=== PATIENT | female | born 1960 | race Caucasian/White ===

== ENCOUNTER 2017-05-29 21:07 | Emergency (ER) | payer OTHER ==
[~2017-05-29] VITALS: Ht 152.4 cm; Wt 77.2 kg
[~2017-05-29 21:07] MED LIST: ACET500C5 PO; BENZ100C70 PO; NPH10OT BOTH EARS; UDROBDM PO
[2017-05-29 21:16] VITALS: Ht 152.4 cm; Wt 77.2 kg
[2017-05-29] MEDS ORDERED: traMADol 50 MG TAB PO ONE (22:00)
--- NOTE | 2017-05-29 22:17 | ERD ---
ER Documentation Chief Complaint Date/Time DATE: 05/29/17 TIME: 22:15 Chief Complaint c/o rt lower back pain radiating to right leg x5 days. denies trauma/fall HPI 56-year-old female otherwise healthy presents with right-sided lower back pain for the past 5 days. She describes as sharp pain, moderate, worse with sitting and better with standing, and radiates down her leg. She denies trauma but reports that she has had this pain in the past previously and it has gone away on its own. She reports that she also has had a rash due to Advil, she tried taking it once 2 days ago without any problems, and has been taking Tylenol since. She denies saddle anesthesia, loss of bowel bladder function or fevers or chills. ROS All systems reviewed and are negative except as per history of present illness. Medications Home Meds Active Scripts Acetaminophen* (Tylophen*) 500 Mg Capsule, 1 CAP PO Q6H Y for PAIN AND OR ELEVATED TEMP, #20 CAP Prov:SUSHANTTARIANBRUNA PA-C 10/18/16 Neomycin/Polymyxin/Hydrocort* (Cortisporin* Otic) 10 Ml Susp, 4 DROP BOTH EARS QID, #1 EA Prov:BRUNA SNIDERC 10/18/16 Benzonatate* (Tessalon Perle*) 100 Mg Capsule, 100 MG PO Q8H Y for COUGH for 14 Days, CAP Prov:BRUNA SNIDER-C 10/18/16 Guaifenesin-Dextromethorphan* (Robitussin* DM) 100MG/10MG/5ML Syrup, 5 ML PO Q4H for 14 Days, ML Prov:BRUNA SNIDER-C 10/18/16 Allergies Allergies: Coded Allergies: chlorpheniramine (Verified Allergy, Mild, 05/29/17) ibuprofen (Verified Allergy, Mild, 10/18/16) pseudoephedrine (Verified Allergy, Mild, 10/18/16) Uncoded Allergies: [id number] (ADVIL) (Allergy, Mild, 03/03/11) PMhx/Soc History of Surgery: No Anesthesia Reaction: No Hx Neurological Disorder: No Hx Respiratory Disorders: No Hx Cardiac Disorders: No Hx Psychiatric Problems: No Hx Miscellaneous Medical Probl: No Hx Alcohol Use: No Hx Substance Use: No Hx Tobacco Use: No Smoking Status: Never smoker Physical Exam Vitals Vital Signs Date Time Temp Pulse Resp B/P Pulse Ox O2 Delivery O2 Flow Rate FiO2 05/29/17 21:16 96.4 78 18 159/79 98 Physical Exam General: Well-developed, well-nourished. The patient appears in no acute distress. HEENT: Head is normocephalic, atraumatic. No scleral icterus. Neck: Supple. Nontender. Lungs: Clear to auscultation. Normal air movement. Heart: Regular rate and rhythm. S1 and S2 are normal. No murmurs, gallops, or rubs. Abdomen: Soft, nontender, nondistended. Bowel sounds are normoactive. Back: Tenderness over the right sacroiliac region. She is able to flex and extend the hip fully. Gait is intact, sensation distally intact. Extremities: No clubbing or cyanosis. Normal pulses. Moving extremities x 4. No weakness. Neurologic: Alert and oriented 3. No focal deficits. Skin: Normal turgor. No rash or lesions. Results 24 hrs Current Medications Medications (Trade) Dose Ordered Sig/Kenny Route PRN Reason Start Time Stop Time Status Last Admin Dose Admin Tramadol HCl (Ultram) 50 mg ONCE ONCE PO 05/29/17 22:00 05/29/17 22:01 DC Procedures/MDM ED course: She was given tramadol for pain. MDM: 48-year-old female presents with low back pain, radiating down her right lower extremity, consistent with sciatica. Patient's symptoms are most consistent with this, other differentials considered include cauda equina, epidural abscess, epidural hematoma, dissection, UTI, pyelonephritis, PID, cervicitis. Patient's back pain is reproduced with palpation, this appears to be musculoskeletal, with a recent exacerbation causing sciatica symptoms. She was given tramadol emergency department much better at this time will be discharged home. Departure Diagnosis: Primary Impression: Back pain Condition: Good WILLEM LAMB PA-C May 29, 2017 22:17
[2017-05-29] MEDS ORDERED: TRAM50TA2 PO (22:18)
[2017-05-29 22:58] VITALS: BP 171/79; PULSE 72; RESP 18; TEMP 98.6
== END 2017-05-29 22:57 | disposition home or self-care (01) ==
LOC: FTE 21:07
DX: M54.5 Low back pain (principal)
CPT/HCPCS: Z7502; Z7610; 99283

== ENCOUNTER 2017-10-01 08:21 | Emergency (ER) | payer OTHER ==
[~2017-10-01] VITALS: Wt 81.8 kg
[~2017-10-01 08:21] MED LIST changes: +TRAM50TA2 PO
[2017-10-01] MEDS ORDERED: KETOROLAC 30 MG INJ IM STA (09:20)
[2017-10-01] MEDS ORDERED: ACETAMINOPHEN 325 MG TAB PO ONE (09:30)
--- NOTE | 2017-10-01 09:49 | RADRPT ---
PROCEDURE: XR Lumbar Spine. CLINICAL INDICATION: Back pain. TECHNIQUE: Three views. AP, lateral and cone-down lateral view of the lumbar spine were obtained. COMPARISON: No prior studies are available for comparison. FINDINGS: There is grade 1 anterolisthesis at L5-S1 measuring 0.3 cm. There is retrolisthesis at L3-4 measurin g 0.5 cm. Alignment is otherwise normal. There is no fracture. There is no lytic or blastic lesion. There are small osteophytes throughout. Disc space narrowing is present at L3-4 and L5-S1. There is hypertrophy of the facet joints at L4-5 and L5-S1. The paravertebral soft tissues are unremarkable. IMPRESSION: 1. Grade 1 anterolisthesis at L5-S1 measuring 0.3 cm. 2. Retrolisthesis at L3-4 measuring 0.5 cm. 3. Degenerative changes at L3-4, L4-5, and L5-S1. 5. Otherwise unremarkable study. RPTAT: QQ .Marques Marcos MD, MD Date Time Electronically viewed and signed by .Marques Marcos MD, on 10/01/2017 09:49 .R/
[2017-10-01] MEDS ORDERED: IBUP-1542 PO (10:17)
[2017-10-01] MEDS ORDERED: CYCL-319 PO (10:17)
--- NOTE | 2017-10-01 10:25 | ERD ---
ER Documentation Chief Complaint Chief Complaint r. sided back pain HPI This 57-year-old female presents with low back pain rating of the right thigh and buttock. She denies any history of trauma. She denies any bowel or bladder incontinence, weakness, urinary complaints, fevers. Patient has had this for several months. She states that she has never had an x-ray. ROS All systems reviewed and are negative except as per history of present illness. Medications Home Meds Active Scripts Cyclobenzaprine Hcl* (Cyclobenzaprine Hcl*) 10 Mg Tablet, 10 MG PO TID, #15 TAB Prov:ASHLY BOBO MD 10/01/17 Ibuprofen* (Motrin*) 600 Mg Tab, 600 MG PO Q6, #20 TAB Prov:ASHLY BOBO MD 10/01/17 Tramadol HCl (Tramadol HCl) 50 Mg Tablet, 50 MG PO Q4 Y for PAIN, #20 TAB Prov:WILLEM LAMB PA-C 05/29/17 Acetaminophen* (Tylophen*) 500 Mg Capsule, 1 CAP PO Q6H Y for PAIN AND OR ELEVATED TEMP, #20 CAP Prov:BRUNA SNIDER PA-C 10/18/16 Neomycin/Polymyxin/Hydrocort* (Cortisporin* Otic) 10 Ml Susp, 4 DROP BOTH EARS QID, #1 EA Prov:BRUNA SNIDER PA-C 10/18/16 Benzonatate* (Tessalon Perle*) 100 Mg Capsule, 100 MG PO Q8H Y for COUGH for 14 Days, CAP Prov:BRUNA SNIDER PA-C 10/18/16 Guaifenesin-Dextromethorphan* (Robitussin* DM) 100MG/10MG/5ML Syrup, 5 ML PO Q4H for 14 Days, ML Prov:BRUNA SNIDER PA-C 10/18/16 Allergies Allergies: Coded Allergies: chlorpheniramine (Verified Allergy, Mild, 05/29/17) pseudoephedrine (Verified Allergy, Mild, 10/18/16) PMhx/Soc Medical and Surgical Hx: pt denies Medical Hx, pt denies Surgical Hx History of Surgery: No Anesthesia Reaction: No Hx Neurological Disorder: No Hx Respiratory Disorders: No Hx Cardiac Disorders: No Hx Psychiatric Problems: No Hx Miscellaneous Medical Probl: No Hx Alcohol Use: No Hx Substance Use: No Hx Tobacco Use: No Smoking Status: Never smoker Physical Exam Vitals Vital Signs Date Time Temp Pulse Resp B/P Pulse Ox O2 Delivery O2 Flow Rate FiO2 10/01/17 08:27 97.9 79 20 142/67 97 Physical Exam Const: [] Alert, [id number]. Head: Atraumatic Eyes: Normal Conjunctiva ENT: Normal External Ears, Nose and Mouth. Neck: Full range of motion..~ No meningismus. Resp: Clear to auscultation bilaterally Cardio: Regular rate and rhythm, no murmurs Abd: Soft, non tender, non distended. Normal bowel sounds Skin: No petechiae or rashes Back: No midline or flank tenderness. Tenderness in the right L4-5 paraspinous muscles and the right buttock. Ambulatory without deficits or weakness. Ext: No cyanosis, or edema Neur: Awake and alert Psych: Normal Mood and Affect Results 24 hrs Current Medications Medications (Trade) Dose Ordered Sig/Kenny Route PRN Reason Start Time Stop Time Status Last Admin Dose Admin Acetaminophen (Tylenol Tab) 650 mg ONCE ONCE PO 10/01/17 09:30 10/01/17 09:30 DC Ketorolac Tromethamine (Toradol) 30 mg ONCE STAT IM 10/01/17 09:20 10/01/17 09:22 DC 10/01/17 09:26 Procedures/MDM X-ray LS-Spine 3V Interpreted by me: Bones: No fracture, or lytic lesions Joints: No dislocation Foreign body: None impression-degenerative changes of the lumbar spine without findings of fracture dislocation. Patient was given Toradol 30 mg IM. Patient presents with low back pain and signs of sciatica without evidence of epidural abscess, cauda equina syndrome, neurologic deficit, bacterial infection. She will treated with ibuprofen, Flexeril, instructions for back exercises and primary care follow-up and return precautions. The patient was stable with no new complaints during the ER course. Clinically, there is no current evidence to suggest meningitis, sepsis, acute abdomen, pneumonia, acute coronary syndrome, pulmonary embolism, or any other emergent condition appearing to require further evaluation or hospitalization. The patient should certainly return for any new or worsening symptoms per the aftercare instructions. They should otherwise follow-up with her primary care doctor for reevaluation this week. Departure Diagnosis: Primary Impression: Back pain Back pain location: low back pain Chronicity: acute Back pain laterality: right Sciatica presence: with sciatica Sciatica laterality: sciatica of right side Qualified Code: M54.41 - Acute right-sided low back pain with right -sided sciatica Condition: Stable Patient Instructions: Back Exercises, Lumbar, Back Pain W/ Sciatica [facility] Usted se crowder hecho un examen mdico de control que le indica que no est en vannessa condicin que requiera tratamiento urgente en el Departamento de Emergencia. Un estudio ms profundo y el tratamiento de hawkins condicin pueden esperar sin ningn riesgo hasta que usted sea atendida/o en el consultorio de hawkins mdico o vannessa cl bonifacio. Es responsabilidad suya arreglar vannessa ariadne para el seguimiento del esmer. MANEJO DE CONDICIONES NO URGENTES EN EL FUTURO 1) Si usted tiene un mdico de atencin primaria: Usted debera llamar a hawkins mdico de atencin primaria antes de venir al departamento de emergencia. Despus de las horas de consultorio, hawkins doctor o hawkins asociado/a est disponible por telfono. El mdico o enfermero de brunilda en el servicio telefnico puede asesorarle por matthew medio para atender el problema, o esmer contrario se puede programar vannessa ariadne. 2) Si usted no tiene un mdico de atencin primaria: Llame al mdico o clnica de referencia que aparece abajo gaby las horas de consultorio para hacer vannessa ariadne para que le vean. CLINICAS: [facility] [phone] [facility] [phone] [facility] [phone] [place] [phone] [facility] [phone] [facility] [phone] [address] Additional Instructions: x ray chris artritis. Cheque otro vez con hawkins doctor primario en el proximo reeder or regresa para mas o nueva simptomas. ASHLY BOBO MD Oct 01, 2017 10:25
[2017-10-01 10:36] VITALS: BP 138/60; PULSE 84; RESP 20; TEMP 98.3
== END 2017-10-01 10:35 | disposition home or self-care (01) ==
LOC: FTE 08:21
DX: M54.41 Lumbago with sciatica, right side (principal)
CPT/HCPCS: 72100; 96372; J1885; Z7502

== ENCOUNTER 2017-12-20 05:30 | Emergency (ER) | END 2017-12-20 08:43 | disposition home or self-care (01) ==

== ENCOUNTER → 2018-04-30 | Emergency (ER) | END | disposition home or self-care (01) ==

== ENCOUNTER 2018-05-02 14:53 | Emergency (ER) | END 2018-05-02 15:40 | disposition home or self-care (01) ==

== ENCOUNTER 2019-05-11 16:33 | Emergency (ER) | payer OTHER ==
[~2019-05-11] VITALS: Ht 157.5 cm; Wt 78.1 kg
[~2019-05-11 16:33] MED LIST changes: +ACET325T33 PO; +BACI28.34 TOP; +BENZ-6 PO; -BENZ100C70 PO; +CEPH-443 PO; +CYCL10TA7 PO; +FLUT9.9S NASAL; +GUAI120S25 PO; +GUAI5SYR2 PO; +IBUP-1542 PO; -UDROBDM PO
[2019-05-11 16:35] VITALS: Ht 157.5 cm; Wt 78.1 kg
[2019-05-11] MEDS ORDERED: HYDROCODONE/APAP (5/325) TAB PO ONE (17:30)
[2019-05-11] MEDS ORDERED: ACET325T33 PO (18:45)
--- NOTE | 2019-05-11 20:06 | ERD ---
ER Documentation Chief Complaint Chief Complaint lt knee pain x 2 days HPI 58-year-old femaleWith no significant past medical history presents to the emergency department complaining of left knee pain after injury 2 days ago. She states she was walking in the store when she accidentally twisted her left knee. She reports pain which is intermittent, 7/10 in severity, worse with walking. She took Tylenol with some relief. She denies any head injury or loss of consciousness or other symptoms or injuries at this time. ROS All systems reviewed and are negative except as per history of present illness. Medications Home Meds Active Scripts Acetaminophen* (Tylenol*) 325 Mg Tablet, 2 TAB PO Q6 PRN for PAIN AND OR ELEVATED TEMP, #20 TAB Prov:MARIE DICKINSON PA-C 05/11/19 Bacitracin* (Bacitracin Zinc Oint*) 28.35 Gm Oint, 1 APPLIC TOP BID, #1 TUB APPLI TO Prov:OMARI GAVIN PA-C 05/02/18 Cephalexin* (Keflex*) 500 Mg Capsule, 500 MG PO QID for 7 Days, CAP Prov:OMARI GAVIN PA-C 05/02/18 Ibuprofen* (Motrin*) 600 Mg Tab, 600 MG PO Q6, #30 TAB Prov:ANA CHAVEZ 04/30/18 Acetaminophen* (Tylenol*) 325 Mg Tablet, 2 TAB PO Q8 PRN for PAIN AND OR ELEVATED TEMP, #20 TAB Prov:ANA CHAVEZ 04/30/18 Tramadol HCl (Tramadol HCl) 50 Mg Tablet, 50 MG PO Q4 PRN for PAIN, #20 TAB Prov:ANA CHAVEZ 04/30/18 Pdxgvvqwhrm-A-Zeubljadlv Hb* (Guaifenesin* DM Syrup) 120 Ml Syrup, 10 ML PO Q4H PRN for COUGH, #4 OZ Prov:WILLEM LAMB PA-C 12/20/17 Acetaminophen* (Tylophen*) 500 Mg Capsule, 1 CAP PO Q6H PRN for PAIN AND OR ELEVATED TEMP, #20 CAP Prov:WILLEM LAMB PA-C 12/20/17 Fluticasone Propionate (Flonase Allergy Relief) 9.9 Ml [place].susp, 1 SPRAY NASAL BID, #1 BOTTLE TO EACH NOSTRIL Prov:WILLEM LAMB PA-C 12/20/17 Benzonatate* (Tessalon Perle*) 100 Mg Capsule, 100 MG PO Q8H PRN for COUGH, #30 CAP Prov:WILLEM LAMB PA-C 12/20/17 Cyclobenzaprine Hcl* (Cyclobenzaprine Hcl*) 10 Mg Tablet, 10 MG PO TID, #15 TAB Prov:ASHLY BOBO MD 10/01/17 Ibuprofen* (Motrin*) 600 Mg Tab, 600 MG PO Q6, #20 TAB Prov:ASHLY BOBO MD 10/01/17 Tramadol HCl (Tramadol HCl) 50 Mg Tablet, 50 MG PO Q4 PRN for PAIN, #20 TAB Prov:WILLEM LAMB PA-C 05/29/17 Acetaminophen* (Tylophen*) 500 Mg Capsule, 1 CAP PO Q6H PRN for PAIN AND OR ELEVATED TEMP, #20 CAP Prov:BRUNA SNIDER PA-C 10/18/16 Neomycin/Polymyxin/Hydrocort* (Cortisporin* Otic) 10 Ml Susp, 4 DROP BOTH EARS QID, #1 EA Prov:BRUNA SNIDER PA-C 10/18/16 Benzonatate* (Tessalon Perle*) 100 Mg Capsule, 100 MG PO Q8H PRN for COUGH for 14 Days, CAP Prov:BRUNA SNIDER PA-C 10/18/16 Guaifenesin-Dextromethorphan* (Robitussin* DM) 100MG/10MG/5ML Syrup, 5 ML PO Q4H for 14 Days, ML Prov:BRUNA SNIDER PA-C 10/18/16 Allergies Allergies: Coded Allergies: chlorpheniramine (Verified Allergy, Mild, 05/11/19) ibuprofen (Verified Allergy, Mild, HIVES, 05/11/19) pseudoephedrine (Verified Allergy, Mild, 05/11/19) PMhx/Soc Medical and Surgical Hx: pt denies Medical Hx History of Surgery: Yes (C SECTION) Anesthesia Reaction: No Hx Neurological Disorder: No Hx Respiratory Disorders: No Hx Cardiac Disorders: No Hx Psychiatric Problems: No Hx Miscellaneous Medical Probl: No Hx Alcohol Use: No Hx Substance Use: No Hx Tobacco Use: No Smoking Status: Never smoker FmHx Family History: No diabetes Physical Exam Vitals Vital Signs Date Temp Pulse Resp B/P (MAP) Pulse Ox O2 O2 Flow FiO2 Time Delivery Rate 05/11/19 97.5 89 18 168/79 96 16:35 (108) Physical Exam Const: No acute distress Head: Atraumatic Eyes: Normal Conjunctiva ENT: Normal External Ears, Nose and Mouth. Neck: Full range of motion. No meningismus. Resp: No respiratory distress. Skin: No petechiae or rashes Ext: Subjective tenderness palpation over the medial aspect of the left knee. Slightly limited range of motion of the left knee secondary to pain. Negative anterior and posterior drawer test. Patient is neurovascularly intact distally. 2+ DP pulses on the left. Neur: Awake and alert Psych: Normal Mood and Affect Results 24 hrs Current Medications Medications Dose Sig/Kenny Start Time Status Last (Trade) Ordered Route PRN Stop Time Admin Dose Reason Admin 1 tab ONCE ONCE 05/11/19 DC 05/11/19 Acetaminophen PO 17:30 17:11 / 05/11/19 17:31 Hydrocodone Bitart ([place] (3/325)) [place] [id number] Radiology Main Line: [phone] DIAGNOSTIC IMAGING REPORT Patient: LUCITA POWERS : 1960 Age: 58 Sex: F MR #: [id number] DOS: 05/11/19 0000 Ordering MD: MARIE DICKINSON PA-C Location: [facility] Room/Bed: PROCEDURE: Left knee x-ray CLINICAL INDICATION: PAIN TECHNIQUE: AP, tunnel and lateral views of the left knee were obtained. COMPARISON: None FINDINGS: There is normal mineralization. No acute fracture or dislocation is seen. Tricompartmental marginal osteophyte formation with borderline mild patellofemoral compartment cartilage space narrowing. No definite tibio-femoral compartment cartilage space narrowing on these nonweight bearing images. There is trace joint fluid. There is no significant soft tissue swelling. IMPRESSION: 1. No displaced fracture identified. 2. Mild tricompartmental degenerative changes as above. RPTAT: BBDD Physician Miguel Date Time Electronically viewed and signed by Diane May Physician on 05/11/2019 17:59 RG/ CC: MARIE DICKINSON PA-C [id number] Procedures/MDM 58-year-old female presents to the emergency department complaining of left knee pain after injury. Patient was neurovascularly intact on examination. X-ray of the left knee showed no displaced fracture. Further findings as discussed by the radiologist above. Patient symptoms are likely secondary to ligamental or tendon injury. Patient required immobilization of the left knee to prevent further injury. Splint Assessment: Neurovascularly intact post splint placement with good fit. Patient's extremity symptoms have stabilized while they have been evaluated in the department and are appropriate for outpatient follow up. No evidence of compartment syndrome, neurologic injury, vascular injury, open joint, open fracture, tendon laceration, or foreign body. I advise for 24 to 48-hour follow-up with orthopedic physician. No evidence of life-threatening pathology at time of discharge. Pt/family in agreement with discharge plan/diagnosis. Pt/family advised to return immediately with any new or worsening symptoms. Follow-up with primary care physician within the next 1-2 days. Departure Diagnosis: Primary Impression: Left knee pain Chronicity: acute Qualified Codes: M25.562 - Pain in left knee Condition: Fair Patient Instructions: Knee Pain, Meniscus Injury (Possible) [facility]errals[facility] Usted se crowder hecho un examen mdico de control que le indica que no est en vannessa condicin que requiera tratamiento urgente en el Departamento de Emergencia. Un estudio ms profundo y el tratamiento de salomon condicin pueden esperar sin ningn riesgo hasta que usted sea atendida/o en el consultorio de salomon mdico o vannessa clnica. Es responsabilidad suya arreglar vannessa ariadne para el seguimiento del esmer. MANEJO DE CONDICIONES NO URGENTES EN EL FUTURO 1) Si usted tiene un mdico de atencin primaria: Usted debera llamar a salomon mdico de atencin primaria antes de venir al departamento de emergencia. Despus de las horas de consultorio, salomon doctor o salomon asociado/a est disponible por telfono. El mdico o enfermero de brunilda en el servicio telefnico puede asesorarle por matthew medio para atender el problema, o esmer contrario se puede programar vannessa ariadne. 2) Si usted no tiene un mdico de atencin primaria: Llame al mdico o clnica de referencia que aparece abajo gaby las horas de consultorio para hacer vannessa ariadne para que le vean. CLINICAS: [facility] [phone] [facility] [phone] [facility] [phone] [facility]. [facility] [phone] [facility] [facility] [phone] [facility] [phone] [facility]. [facility] Urgent Care 7 a.m.- 11 p.m. Every Day of the Week NO APPOINTMENT OR AUTHORIZATION NEEDED [facility] Hours: Mon-Fri 9:00 AM - 5:00 PM Additional Instructions: Specialist:Usted tiene vannessa condicin mdica que requiere que amada a un especialista dentro de los prximos 1-2 alonzo.POR FAVOR,CON SALOM[place] SEGUIMIENTO DE PRIMARIA PHSICIAN refferal. SI USTED NO TIENE UN MDICO GENERAL Y / O USTED NO PUEDE PAGAR ashley a un mdico,los siguientes saldaña RECURSOS sido suministrado a usted. ES SALOMON RESPONSABILIDAD PARA SER VISTOS POR EL ESPECIALISTA: ORTHOPEDICS MARIE DICKINSON PA-C May 11, 2019 20:06
[2019-05-11 21:00] VITALS: BP 145/67; PULSE 78; RESP 20
== END 2019-05-11 21:00 | disposition home or self-care (01) ==
LOC: FTE 16:33
DX: M25.562 Pain in left knee (principal)
CPT/HCPCS: 29505; 73562; Z7610